=== PATIENT | male | born 1935 | race Caucasian/White ===

== ENCOUNTER 2016-07-09 13:11 | Outpatient (RCR) | payer MEDICARE, OTHER ==
--- OUTSIDE RECORDS SUMMARY | 2016-06-25 13:00 | XMS REPORT | Continuity of Care Document ---
Author Author [facility] Organization [facility] Address Unknown Phone Unavailable Care Team Providers Care Breakfast Attendant Name Role Phone Marques Albina PCP [phone] Source Comments Some departments are not documenting in the electronic medical record. If you do not see the information that you expected, contact Release of Information in the Health Information Management department at [phone] for further assistance in locating additional records.[facility] Active Allergies and Adverse Reactions Allergen Noted Date Severity Reactions Comments Iodine 02/10/2016 Low FLUSHING (SKIN) Current Medications Prescription Sig. Disp. Refills Start End Date Status Date traMADol (ULTRAM) 50 mg Take 50 mg by mouth every Active tablet 8 hours as needed for Pain. FLUTICASONE/SALMETEROL Inhale 50 mcg by mouth. Active (ADVAIR DISKUS IN) Indications: 1 puff 2x daily albuterol (VENTOLIN HFA, Inhale 2 Puffs by mouth Active PROAIR HFA) 90 every 6 hours as needed mcg/actuation inhaler for Wheezing. Indications: up to 4 puffs/day lidocaine-prilocaine Apply to Port-a-cath 30 30 g 2 02/29/20 Active (EMLA) 2.5-2.5 % topical minutes prior to 16 cream chemotherapy. senna/docusate Take 2 Tabs by mouth Active (SENOKOT-S) 8.6/50 mg three times daily. tablet Indications: CONSTIPATION polyethylene glycol 3350 Take 17 g by mouth daily Active (GLYCOLAX; MIRALAX) 17 as needed for gram/dose powder Constipation. guaiFENesin LA (MUCINEX) Take 1 Tab by mouth twice 60 Tab 1 03/27/20 Active 600 mg tablet daily. 16 sucralfate (CARAFATE) 1 Take 1 Tab by mouth every 360 Tab 3 03/29/20 Active gram tablet 6 hours. Take on an empty 16 stomach. amiodarone (CORDARONE) Take 100 mg by mouth Active 200 mg tablet daily. Take with food. midodrine (PROAMATINE) Take 1 Tab by mouth three 05/29/20 Active 2.5 mg tablet times daily. 16 buPROPion SR(+) Take 1 Tab by mouth 30 Tab 1 06/14/20 Active (WELLBUTRIN SR) 150 mg daily. 16 tablet morphine SR (MS CONTIN; Take 1 Tab by mouth every 60 Tab 0 06/19/20 Active ORAMORPH SR) 30 mg ER 12 hours 16 tablet fluticasone (FLONASE Apply 1 [place] to each 48 g 3 06/19/20 Active ALLERGY RELIEF) 50 nostril as directed 16 mcg/actuation nasal spray daily. Shake bottle gently before using. montelukast (SINGULAIR) Take 10 mg by mouth at 06/19/20 Discontin 10 mg tablet bedtime daily. 16 ued Cetirizine 10 mg cap Take by mouth. 06/19/20 Discontin 16 ued ondansetron (ZOFRAN) 8 mg Take 1 Tab by mouth every 30 Tab 6 02/29/20 06/19/20 Discontin tablet 8 hours as needed for 16 16 ued Nausea. prochlorperazine Take 1 Tab by mouth every 30 Tab 6 02/29/20 Discontin (COMPAZINE) 10 mg tablet 6 hours as needed. 16 16 ued dexamethasone (DECADRON) Take 2 Tabs by mouth as 24 Tab 2 02/29/20 06/19/20 Discontin 4 mg tablet directed. Take day 16 16 ued before, day of and day after chemotherapy. pantoprazole DR Take 1 Tab by mouth 90 Tab 3 02/29/20 06/19/20 Discontin (PROTONIX) 40 mg tablet daily. 16 16 ued diphenhydrAMINE/lidocaine Swish and Swallow 15 mL 480 mL 2 03/14/20 06/19/20 Discontin /antacid (#) (MAGIC as directed four times 16 16 ued MOUTHWASH) 1:1:1 oral daily as needed for Mouth suspension Pain. Swallow 15 minutes prior to meals. rivaroxaban (XARELTO) 20 Take 1 Tab by mouth daily 90 Tab 3 03/29/20 06/19/20 Discontin mg tab tablet with breakfast. 16 16 ued nystatin (MYCOSTATIN) Take 1 mL by mouth three 473 mL 3 05/08/2003/31 Discontin 100,000 units/mL oral times daily as needed for 16 16 ued suspension Oral Thrush. Swish and swallow morphine SR (MS CONTIN; Take 1 Tab by mouth every 60 Tab 0 05/08/20 06/19/20 Discontin ORAMORPH SR) 30 mg ER 12 hours 16 16 ued tablet HYDROcodone/acetaminophen Take 1 Tab by mouth every 90 Tab 0 05/08/20 06/19/20 Discontin (NORCO) 5-325 mg tablet 4 hours as needed for 16 16 ued Pain dronabinol (MARINOL) 2.5 Take 1 Cap by mouth daily 30 Cap 0 05/08/20 06/19/20 Discontin mg capsule with dinner. 16 16 ued mupirocin calcium Apply 0.5 g to each 10 g 0 05/22/20 06/19/20 Discontin (BACTROBAN NASAL) 2 % nostril as directed twice 16 16 ued nasal ointment daily. Use half of each tube in one nostril and half in the other nostril. metoprolol tartrate Take 1 Tab by mouth twice 180 Tab 3 05/29/2003/31 Discontin (LOPRESSOR) 25 mg tablet daily. 16 16 ued Active Problems Problem Noted Date GERD with esophagitis 06/05/2016 Hematuria 05/22/2016 Last Assessment & Plan: Gross hematuria. UA today shows protein of 4+, and blood 3+. PCP placed him abx-they are unsure which one. Continues to have blood in urine. Concerning since he is on Avastin. Will order bilateral renal ultrasound and [facility]. Will hold Avastin for now. Remain off Xarelto for now as well. Staphylococcus infection of nose 05/22/2016 Last Assessment & Plan: Will place on topical mupirocin BID x 1 week. To call if symptoms persist. Orthostatic hypotension 04/03/2016 Last Assessment & Plan: Likely due to dehydration as he admits to not taking in enough fluids. BP today 98/58. Will give 1 liter of NS with treatment today. Instructed to increase fluid intake. Medication management 04/03/2016 Last Assessment & Plan: and patient feel overwhelmed by all the changes in medication. Pt fills own pill box, but is unsure if he is doing it right. Has been placing PRN medications in with scheduled and taking all. Reviewed and updated medications with patient and during visit. Printed updated version for patient and . Encourage to fill medication box together so they both know what is going into the boxes. Do not place PRN medications in with pill box, but leave available to take as needed. Educated on looking at pill labels and how to read. /patient instructed to call with any questions or concerns. Chronic pain due to neoplasm 04/03/2016 Last Assessment & Plan: Controlled with current regimen of Morphine ER 30 mg BID, and prn tramadol. Constipation 03/27/2016 Last Assessment & Plan: Continues to have issues with constipation. Instructed to have bowel regimen as previously discussed and to ambulate and stay hydrated. To call if no bm> 2 days. Neoplastic malignant related fatigue 03/27/2016 Last Assessment & Plan: Patient feels better and reports fair energy. is concerned about fatigue as he is sleeping more, losing interest in hobbies, agitated, and not wanting to be as active as normal. Fatigue likely multifactorial with disease burden, emotional stress, and depressed mood adding to feelings of fatigue. Will check iron panel to see if contributing to fatigue. If fatigue persists or worsens, will consider fatigue management clinic. satisfied with plan. Cough productive of clear sputum 03/27/2016 Last Assessment & Plan: Continue Mucinex 600 mg BID as it is helping symptoms. Hypokalemia 03/27/2016 Last Assessment & Plan: Decreased potassium to 10 mEq daily. Today potassium level is 5.1. Instructed to stop potassium. Will continue to monitor. Oral candidiasis 03/14/2016 Last Assessment & Plan: Remain on Diflucan 100mg QD. Persistent atrial fibrillation (HCC) 03/14/2016 Last Assessment & Plan: On Metoprolol and Xarelto. Order printed for EKG. Patient will have this done tomorrow. Dizziness 03/14/2016 Last Assessment & Plan: Has not bee drinking enough fluids. Not on any antihypertensives. Instructed slow position changes, have stability. Back pain 02/29/2016 Last Assessment & Plan: Pain has improved since radiation. Continues on MS Contin and PRN hydrocodone-has not needed as much hydrocodone. Does not need refills Gastroesophageal reflux disease with esophagitis 02/29/2016 Last Assessment & Plan: Remain on Magic Mouthrinse and Protonix 40mg BID. Malignant neoplasm of upper lobe of left lung (HCC) 02/10/2016 Overview: Tripp Martínez is a 80-year-old male with extensive tobacco abuse history, referred by Dr. Jeronimo Caraballo and Dr. 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 Mr. Martínez is Dr. 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 Mr. Martínez noted onset of mid back pain several weeks ago and was evaluated in his local emergency room, was given pain medications and steroids. He then presented with new onset atrial fibrillation. He was transferred to [facility] where he initiated anticoagulation and was cardioverted. While in the hospital, he did note some hoarseness and was evaluated by Dr. Fuentes, in ENT. He did have a chest x-ray performed, which was concerning for right lung nodule, this led to a CT chest, 02/07/2016, revealing a 2.5 x 2.2 x 2.3 cm lobulated nodule just to the left of the hilum with contiguous adenopathy in the left hilum extending into the AP window. This was confluent with well defined discrete individual lymph nodes, which appeared to measure up to 2.3 x 1.8 cm. In the posterior right upper lobe, there was a faint 12 mm opacity, in the left lower lobe an irregular nodular opacity. He had prominent coronary artery calcifications, left adrenal gland nodule [address] lumbar spine revealed DJD and no acute fracture. He underwent PET scan on February 09, which revealed the perihilar left lung nodule to have elevated FDG of 6.6. Additionally, there was elevated FDG activity corresponding to a poorly marginated ground-glass density in the suprahilar left upper lobe with SUV of 4.6. He had ill defined adenopathy in the AP window with an FDG of 4.9. There were focal areas of increased bone activity at the T6 level in the region at the junction of the vertebral body and pedicle and in the T10 level in the region of the left facet joint and transverse process, also in the right iliac wing and posterior right iliac bone with maximum SUVs from 2.1 to 4.4. The enlarged left adrenal gland did not have activity. He underwent pulmonary evaluation with Dr. Jeronimo Caraballo and underwent EBUS. This revealed non-small cell lung carcinoma compatible with adenocarcinoma. I did speak with Dr. Froylan Ewing in Pathology and we are ordering ALK1 and EGFR testing on the slides. He was referred to Dr. Saldaña and is receiving palliative radiotherapy to T4 through L1. This was initiated on 02/10/2016 and will complete on 02/23/2016. PAC placement on 03/01/16. Taxol/Carboplatin/Avastin to be initiated on 03/07/16. 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 Completed radiation. Currently on Taxol/carbo/Avastin. Here for cycle 3 day 15-carbo/taxol only. ANC 1.19. Discussed with Dr. Saunders. Okay to give carbo/taxol. Due to hematuria, will hold Avastin for cycle 4. Discussed with Tripp and . Resolved Problems Problem Noted Date Resolved Date Acute bilateral low back pain without sciatica 02/29/2016 02/29/2016 Most Recent Encounters Date Type Specialty Providers Description 06/19/2016 Office Visit Oncology Addis Saunders MD Malignant neoplasm of upper lobe of left lung (HCC) (Primary Dx) 06/19/2016 [facility] Oncology Addis Saunders MD Arrived Encounter 06/19/2016 [facility] Oncology Addis Saunders MD Arrived Encounter 06/19/2016 Orders Only Addis Redmond MD Primary lung cancer, unspecified laterality (HCC) (Primary Dx) 06/19/2016 Orders Only Addis Redmond MD 06/18/2016 Telephone Addis Redmond MD Appointment Request 06/14/2016 Telephone Addis Redmond MD Medication Follow- up 06/13/2016 Orders Only Addis Redmond MD Non-small cell carcinoma of lung (HCC) (Primary Dx) 06/13/2016 Orders Only Oncology Lidya Ontiveros RN Malignant neoplasm of upper lobe of left lung (HCC) 06/10/2016 Ancillary Radiology Outpatient, Radiologist Diagnosis unknown Orders (Primary Dx) 06/08/2016 Orders Only Oncology Addis Saunders MD 06/07/2016 Orders Only Oncology Addis Saunders MD 06/05/2016 Office Visit Oncology Rosa Jones APRN Malignant neoplasm of upper lobe of left lung (HCC) (Primary Dx); Gastroesophageal reflux disease with esophagitis; Hematuria; Dizziness; GERD with esophagitis; Oral candidiasis; Slow transit constipation 06/05/2016 Hospital Oncology Rosa Jones APRN Encounter 06/05/2016 [facility] Oncology Rosa Jones APRN Encounter 06/04/2016 Hospital Radiology Encounter 06/01/2016 Orders Only Oncology Lidya Ontiveros RN Hematuria 05/30/2016 Telephone Oncology Addis Saunders MD Referral 05/30/2016 Orders Only Addis Redmond MD 05/29/2016 [facility] Addis Redmond MD Encounter 05/29/2016 Hospital Oncology Addis Saunders MD Encounter 05/29/2016 Orders Only Oncology Addis Saunders MD 05/29/2016 [facility] Addis Redmond MD 05/28/2016 Orders Only Oncology Rhonda Catherine APRN Hematuria, gross (Primary Dx) 05/23/2016 Orders Only Oncology Addis Saunders MD 05/22/2016 Office Visit Oncology Addis Saunders MD Malignant neoplasm of Rhonda Catherine APRN upper lobe of left lung (HCC) (Primary Dx); Hematuria; Chronic pain due to neoplasm; Staphylococcus infection of nose; Slow transit constipation 05/22/2016 [facility] Oncology Addis Saunders MD Encounter 05/22/2016 [facility] Oncology Addis Saunders MD Encounter 05/15/2016 Hospital Oncology Addis Saunders MD Encounter 05/15/2016 Hospital Oncology Addis Saunders MD Encounter 05/09/2016 Orders Only Oncology Addis Saunders MD Malignant neoplasm of left lung, unspecified part of lung (HCC) (Primary Dx) 05/08/2016 Hospital Addis Redmond MD Encounter 05/08/2016 Office Visit Oncology Addis Saunders MD Malignant neoplasm of upper lobe of left lung (HCC) (Primary Dx) 05/08/2016 [facility] Oncology Addis Saunders MD Encounter 05/08/2016 Telephone Oncology Addis Saunders MD Medication Question 05/01/2016 [facility] Oncology Addis Saunders MD Encounter 05/01/2016 [facility] Oncology Addis Saunders MD Encounter 04/30/2016 Orders Only Oncology Leyda Perea, PHARMD 04/24/2016 Office Visit Oncology Rhonda Catherine APRN Malignant neoplasm of Jones, Rosa, BALLAST CLEANING MACHINE OPERATOR upper lobe of left lung (HCC) (Primary Dx); Neoplastic malignant related fatigue; Pancytopenia due to antineoplastic chemotherapy (HCC); Nasal abrasion, initial encounter 04/24/2016 [facility] Oncology Addis Saunders MD Encounter 04/24/2016 [facility] Oncology Addis Saunders MD Encounter 04/17/2016 [facility] Oncology Addis Saunders MD Encounter 04/17/2016 [facility] Oncology Addis Saunders MD Encounter 04/17/2016 Refill Oncology Addis Saunders MD Chronic pain due to neoplasm (Primary Dx) 04/17/2016 Refill Oncology Addis Saunders MD Chronic pain due to neoplasm (Primary Dx) 04/17/2016 Orders Only Oncology Addis Saunders MD 04/13/2016 Orders Only Oncology Rhonda Catherine [employer]ALLAST CLEANING MACHINE OPERATOR 04/11/2016 Orders Only Oncology Leyda Perea, PHARMD 04/10/2016 [facility] Oncology Addis Saunders MD Encounter 04/10/2016 [facility] Oncology Addis Saunders MD Encounter 04/05/2016 Orders Only Oncology Yoly Pereaca, PHARMD 04/03/2016 Office Visit Oncology Rhonda Catherine APRN Malignant neoplasm of upper lobe of left lung (HCC) (Primary Dx); Chronic pain due to neoplasm; Orthostatic hypotension; Slow transit constipation; Cough productive of clear sputum; Dizziness; Medication management; Hypokalemia 04/03/2016 [facility] Oncology Rhonda Catherine [employer]ALLAST CLEANING MACHINE OPERATOR Encounter 04/03/2016 [facility] Oncology Rhonda Catherine APRN Encounter 03/30/2016 Orders Only Oncology Rhonda Catherine APRN 03/29/2016 Refill Oncology Addis Saunders MD 03/27/2016 [facility] Oncology Addis Saunders MD Encounter 03/27/2016 Office Visit Oncology Addis Saunders MD Malignant neoplasm of Rhonda Catherine, BALLAST CLEANING MACHINE OPERATOR upper lobe of left lung (HCC) (Primary Dx); Slow transit constipation; Neoplastic malignant related fatigue; Cough productive of clear sputum; Hypokalemia; Chronic bilateral low back pain without sciatica 03/27/2016 [facility] Oncology Addis Saunders MD Encounter 03/26/2016 Orders Only Oncology Addis Saunders MD Social History Tobacco Use Types Packs/Day Years Used Date Former Smoker Cigarettes 1 64 Alcohol Use Drinks/Week oz/Week Comments Yes 1 Glasses of 0.6 wine Last Filed Vital Signs Vital Sign Reading Time Taken Blood Pressure 99/67 06/19/2016 9:03 AM [employer]BED WIRE MACHINE OPERATOR Pulse 50 06/19/2016 9:03 AM [employer]BED WIRE MACHINE OPERATOR Temperature 36.7 C (98.1 F) 06/19/2016 9:03 AM BARBED WIRE MACHINE OPERATOR Respiratory Rate 18 06/19/2016 9:03 AM [employer]BED WIRE MACHINE OPERATOR Height 1.778 m (5' 10") 06/19/2016 9:03 AM BARBED WIRE MACHINE OPERATOR Weight 65.318 kg (144 lb) 06/19/2016 9:03 AM BARBED WIRE MACHINE OPERATOR Body Mass Index 20.66 06/19/2016 9:03 AM BARBED WIRE MACHINE OPERATOR Oxygen Saturation 95% 06/19/2016 9:03 AM [employer]BED WIRE MACHINE OPERATOR Plan of Care Health Maintenance Due Date Last Done Comments Physical (Comprehensive) 1942 Exam Pertussis Vaccine 1948 Tetanus Vaccine 1954 Shingles Vaccine 1997 Prevnar/Pneumovax (#1) 2002 Influenza Vaccine 04/12/2016 Results from Last 3 Months COMPREHENSIVE METABOLIC PANEL (06/19/2016 9:12 AM)Only the most recent of 12 results within the time period is included. Component Value Range Sodium 135 (L) 137-147 MMOL/L Potassium 2.9 (L) 3.5-5.1 MMOL/L Chloride 94 (L) 98-110 MMOL/L Glucose 150 (H) 70-100 MG/DL Blood Urea Nitrogen 23 7-25 MG/DL Creatinine 1.19 0.4-1.24 MG/DL Calcium 8.7 8.5-10.6 MG/DL Total Protein 5.9 (L) 6.0-8.0 G/DL Total Bilirubin 0.4 0.3-1.2 MG/DL Albumin 2.9 (L) 3.5-5.0 G/DL Alk Phosphatase 75 25-110 U/L AST (SGOT) 15 7-40 U/L CO2 33 (H) 21-30 MMOL/L ALT (SGPT) 10 7-56 U/L Anion Gap 8 3-12 eGFR Non 59 (L)Comment: >60 mL/min The eGFR is not validated for use in drug dosing adjustments. Continue to use estimated creatinine clearance per dosing reference text. Please contact the Clinical Pharmacist for questions. eGFR >60Comment: >60 mL/min The eGFR is not validated for use in drug dosing adjustments. Continue to use estimated creatinine clearance per dosing reference text. Please contact the Clinical Pharmacist for questions. Specimen Blood CBC AND DIFF (06/19/2016 9:12 AM)Only the most recent of 12 results within the time period is included. Component Value Range White Blood Cells 5.3 4.5-11.0 K/UL RBC 3.74 (L) 4.4-5.5 M/UL Hemoglobin 11.6 (L) 13.5-16.5 GM/DL Hematocrit 34.5 (L) 40-50 % MCV 92.1 80-100 FL MCH 30.9 26-34 PG MCHC 33.5 32.0-36.0 G/DL RDW 21.4 (H) 11-15 % Platelet Count 86 (L) 150-400 K/UL MPV 8.3 7-11 FL Segmented Neutrophils 52 41-77 % Bands 24 (H) 0-10 % Lymphocytes 7 (L) 24-44 % Monocytes 13 (H) 4-12 % Eosinophil 2 0-5 % Basophil 2 0-2 % ANISO PRESENT Ovalocyte PRESENT Large Platelets PRESENT Platelet Estimate MOD DEC Absolute Neutrophil Count 4.03 1.8-7.0 K/UL Manual Specimen Blood CT CHEST WO CONTRAST (06/08/2016)Only the most recent of 2 results within the time period is included.URINALYSIS DIPSTICK (06/05/2016 9:51 AM)Only the most recent of 11 results within the time period is included. Component Value Range Color,UA RED Turbidity,UA 4+ (A) CLEAR-CLEAR Specific [place]-Urine 1.015 1.003-1.035 pH,UA 7.5 5.0-8.0 Protein,UA 4+ (A) NEG-NEG Glucose,UA NEG NEG-NEG Ketones,UA NEG NEG-NEG Bilirubin,UA NEG NEG-NEG Blood,UA 3+ (A) NEG-NEG Urobilinogen,UA NORMAL NORM-NORMAL Nitrite,UA NEG NEG-NEG Leukocytes,UA NEG NEG-NEG Specimen Urine CT ABD/PEL EXTERNAL IMAGING (06/04/2016 8:30 AM) Narrative This order has been auto finalized and does not contain a result. US RENAL BLADDER LTD (05/22/2016)FERRITIN (04/03/2016 9:47 AM) Component Value Range Ferritin 843 (H) 30-300 NG/ML Specimen Blood IRON + BINDING CAPACITY + %SAT (04/03/2016 9:47 AM) Component Value Range Iron 43 (L)Comment: SLT HEMOLYSIS 50-185 MCG/DL Iron Binding-TIBC 183 (L) 270-380 MCG/DL % Saturation 23 (L) 28-42 % Specimen Blood
[2016-06-25 15:50] LABS: BASOPHILS % (AUTO) 0 % (0-10); EOSINOPHILS % (AUTO) 1 % (0-10); LYMPHOCYTES # (AUTO) 2.2 X 10^3 (1.0-4.0); LYMPHOCYTES % (AUTO) 40 % (12-44); MEAN CORPUSCULAR HEMOGLOBIN 31 PG (25-34); MEAN CORPUSCULAR HGB CONC 32 G/DL (32-36); MEAN CORPUSCULAR VOLUME 95 FL (80-99); MEAN PLATELET VOLUME 11.1 FL (7.4-10.4); MONOCYTES # (AUTO) 0.7 X 10^3 (0.0-1.0); MONOCYTES % (AUTO) 12 % (0-12); NEUTROPHILS # (AUTO) 2.7 X 10^3 (1.8-7.8); NEUTROPHILS % (AUTO) 47 % (42-75); PLATELET COUNT 189 10^3/uL (130-400); RED BLOOD COUNT 4.31 10^6/uL (4.35-5.85); RED CELL DISTRIBUTION WIDTH 19.2 % (10.0-14.5); WHITE BLOOD COUNT 5.6 10^3/uL (4.3-11.0)
[2016-06-25 16:17] LABS: ALBUMIN 3.3 G/DL (3.2-4.5); BILIRUBIN,TOTAL 0.5 MG/DL (0.1-1.0); CALCIUM 9.2 MG/DL (8.5-10.1); CREATININE SERUM 1.23 MG/DL (0.60-1.30); POTASSIUM 3.5 MMOL/L (3.6-5.0); TOTAL PROTEIN 6.6 G/DL (6.4-8.2)
[~2016-07-09 13:11] MED LIST: ASP81TEC PO; ATOR20TA66 PO; FLUT16SP22 NSEACH; FURO20TA4 PO; KCL10CCR PO; METO50TA7 PO; NF-ESOM40C PO; OMEG1CAP74 PO; TRAM50TA2 PO; UBID30CA13 PO; VARD20TA30 PO
[2016-07-09 15:39] LABS: ALANINE AMINOTRANSFERASE 12 U/L (0-55); ALBUMIN 3.5 G/DL (3.2-4.5); ANION GAP 7 MMOL/L (5-14); ASPARTATE AMINO TRANSFERASE 19 U/L (5-34); BILIRUBIN,TOTAL 0.3 MG/DL (0.1-1.0); BLOOD UREA NITROGEN 13 MG/DL (7-18); BUN/CREATININE RATIO 12; CALCIUM 8.8 MG/DL (8.5-10.1); CARBON DIOXIDE 25 MMOL/L (21-32); CHLORIDE 106 MMOL/L (98-107); CREATININE SERUM 1.06 MG/DL (0.60-1.30); GFR ESTIMATED > 60; GLUCOSE 97 MG/DL (70-105); POTASSIUM 3.9 MMOL/L (3.6-5.0); SODIUM 138 MMOL/L (135-145); TOTAL PROTEIN 6.6 G/DL (6.4-8.2)
[2016-07-09 15:51] LABS: BASOPHILS % (AUTO) 1 % (0-10); EOSINOPHILS # (AUTO) 0.1 10^3/uL (0.0-0.3); EOSINOPHILS % (AUTO) 2 % (0-10); LYMPHOCYTES # (AUTO) 2.1 X 10^3 (1.0-4.0); LYMPHOCYTES % (AUTO) 40 % (12-44); MEAN CORPUSCULAR HEMOGLOBIN 31 PG (25-34); MEAN CORPUSCULAR HGB CONC 32 G/DL (32-36); MEAN CORPUSCULAR VOLUME 97 FL (80-99); MEAN PLATELET VOLUME 9.6 FL (7.4-10.4); MONOCYTES # (AUTO) 0.6 X 10^3 (0.0-1.0); MONOCYTES % (AUTO) 11 % (0-12); NEUTROPHILS # (AUTO) 2.4 X 10^3 (1.8-7.8); NEUTROPHILS % (AUTO) 46 % (42-75); PLATELET COUNT 161 10^3/uL (130-400); RED BLOOD COUNT 3.83 10^6/uL (4.35-5.85); WHITE BLOOD COUNT 5.2 10^3/uL (4.3-11.0)
== END 2016-09-23 | disposition home or self-care (01) ==
LOC: ONC 13:11
PROVIDERS: ATTEND Internal Medicine Hematology & Oncology
DX: C34.91 Malignant neoplasm of unspecified part of right bronchus or lung (principal); C79.51 Secondary malignant neoplasm of bone; J44.9 Chronic obstructive pulmonary disease, unspecified; K20.9 Esophagitis, unspecified; R63.0 Anorexia; N30.90 Cystitis, unspecified without hematuria; R42 Dizziness and giddiness; K59.00 Constipation, unspecified
CPT/HCPCS: 36415; 80053; 82378; 85025; 99213; 99214